=== PATIENT | female | born 1970 | race Caucasian/White ===

== ENCOUNTER 2017-04-30 10:03 | Outpatient (CLI) | payer OTHER | END 2017-04-30 10:04 | disposition home or self-care (01) | LOC: LAB.WCP 10:03 | PROVIDERS: ATTEND Physician Assistant Medical | DX: R25.2 Cramp and spasm (principal) | CPT/HCPCS: 36415; 83519 ==

== ENCOUNTER 2017-09-06 07:37 | Outpatient (CLI) | payer BC ==
[2017-09-06] MEDS ORDERED: GADOBUTROL 10 MMOL/10 ML VIAL ONE (07:52)
[2017-09-06] MEDS ORDERED: GADOBUTROL 10 MMOL/10 ML VIAL IVP ONE (08:33)
--- NOTE | 2017-09-06 17:39 | MRI Report ---
EXAM: MRI BRAIN WITHOUT AND WITH CONTRAST EXAM DATE: 09/06/2017 08:45 AM. CLINICAL HISTORY: Muscle cramps, peripheral neuropathy. History of chronic fibromyalgia. Recent left leg pain. COMPARISON: None. TECHNIQUE: Multiplanar, multisequence T1-weighted and fluid-sensitive MR sequences of the brain were performed. Sequences optimized for routine evaluation. Other: None. IV Contrast: 8.5 mL Gadavist. FINDINGS: Brain Volume: Normal for age. Parenchyma: No acute hemorrhage, mass, or infarct. He matter and white matter signal is unremarkabl e. No abnormal enhancement. Ventricles/Cisterns: No hydrocephalus. No abnormal extra-axial fluid collection or hemorrhage. Orbits: Symmetric and unremarkable. Sella Turcica: The pituitary gland, cavernous sinuses, suprasellar cistern and optic chiasm are unrem arkable. IAC: Symmetric and unremarkable. Vasculature: Normal signal flow void is seen in the major arterial structures at the skull base. The dural sinuses are patent and enhance normally. Sinuses: No acute sinus disease. Bones: No focal pathologic appearing marrow signal changes. There is an oval 7 mm focus of signal abn ormality seen in the superior left occipital bone likely representing an hemangioma or epidermoid. Th is primarily follows fat signal intensity without restricted diffusion. Other: None. IMPRESSION: 1.Normal MRI of the brain without and with contrast. [facility] Referring Provider Line: [phone] SITE ID: [id number]
== END 2017-09-06 07:38 | disposition home or self-care (01) ==
LOC: DI 07:37
PROVIDERS: ATTEND Physician Assistant Medical
DX: R25.2 Cramp and spasm (principal); G62.9 Polyneuropathy, unspecified
CPT/HCPCS: 70553; A9585

== ENCOUNTER 2017-10-17 09:13 | Outpatient (CLI) | payer BC | END 2017-10-17 09:14 | disposition home or self-care (01) | LOC: LAB.R 09:13 | PROVIDERS: ATTEND Physician Assistant Medical | DX: R35.0 Frequency of micturition (principal) | CPT/HCPCS: 87086 ==

== ENCOUNTER 2018-10-21 20:39 | Outpatient (CLI) | payer OTHER ==
--- NOTE | 2018-10-22 14:27 | Ultrasound Report ---
Reason: RIGHT LOWER QUADRANT PAIN Procedure Date: 10/21/2018 Accession Number: [id number] / [id number] Procedure: US - Pelvic w/Transvaginal CPT Code: FULL RESULT: EXAM: PELVIC ULTRASOUND EXAM DATE: 10/21/2018 09:48 PM. CLINICAL HISTORY: Right lower quadrant pain. COMPARISON: None. TECHNIQUE: Realtime transabdominal pelvic scan performed to identify the uterus and adnexa and as an overview of other pelvic structures, followed by transvaginal scan to provide greater detail of the uterus and adnexa, with static image documentation. FINDINGS: Uterus: 9.4 x 5.0 x 6.1 cm, volume 150 cc. Anteverted position. Normal overall size and echotexture. Masses: None. Endometrium: 4 mm. Normal. Cervix: Nabothian cyst, otherwise unremarkable. Right Ovary: 3.1 x 1.8 x 1.9 cm, volume 5.5 cc. Normal echotexture. Left Ovary: 1.9 x 2.2 x 1.5 cm, volume 3.3 cc. Normal echotexture. Free Fluid: None. Other: None. IMPRESSION: Normal study. [facility]
== END 2018-10-21 20:40 | disposition home or self-care (01) ==
LOC: DI 20:39
PROVIDERS: ATTEND Nurse Practitioner Family
DX: R10.31 Right lower quadrant pain (principal); R10.813 Right lower quadrant abdominal tenderness
CPT/HCPCS: 76830; 76856

== ENCOUNTER 2019-03-02 09:59 | Outpatient (CLI) | payer OTHER ==
[2019-03-02 10:26] LABS: BASOPHILS # (AUTO) 0.1 10^3/uL (0.0-0.1); BASOPHILS % (AUTO) 1.1 %; EOSINOPHILS # (AUTO) 0.1 10^3/uL (0.0-0.7); EOSINOPHILS % (AUTO) 1.1 %; HGB - HEMOGLOBIN 11.5 g/dL (12.0-16.0); LYMPHOCYTES # (AUTO) 1.6 10^3/uL (1.5-3.5); LYMPHOCYTES % (AUTO) 32.2 %; MEAN CORPUSCULAR HEMOGLOBIN 24.6 pg (27.0-31.0); MEAN CORPUSCULAR HGB CONC 31.4 g/dL (32.0-36.0); MEAN CORPUSCULAR VOLUME 78.4 fL (81.0-99.0); MEAN PLATELET VOLUME 9.2 fL (7.9-10.8); MONOCYTES # (AUTO) 0.4 10^3/uL (0.0-1.0); MONOCYTES % (AUTO) 7.7 %; NEUTROPHILS # (AUTO) 2.8 10^3/uL (1.5-6.6); NEUTROPHILS % (AUTO) 57.9 %; PLT - PLATELET COUNT 141 10^3/uL (130-450); RED BLOOD COUNT 4.69 10^6/uL (4.20-5.40); RED CELL DISTRIBUTION WIDTH 15.6 % (12.0-15.0); WHITE BLOOD COUNT 4.9 x10^3/uL (4.8-10.8)
[2019-03-02 10:38] LABS: HCG UR QUAL NEGATIVE
[2019-03-02 10:41] LABS: CREATININE 0.7 mg/dL (0.4-1.0)
== END 2019-03-02 10:00 | disposition home or self-care (01) ==
LOC: LAB 09:59
PROVIDERS: ATTEND Obstetrics & Gynecology
DX: Z01.812 Encounter for preprocedural laboratory examination (principal); N94.6 Dysmenorrhea, unspecified; R10.2 Pelvic and perineal pain; N87.9 Dysplasia of cervix uteri, unspecified
CPT/HCPCS: 36415; 80048; 81025; 85025; 86850; 86900; 86901

== ENCOUNTER 2019-03-03 07:51 | Day surgery (SDC) | payer OTHER ==
--- NOTE | 2019-03-03 07:46 | ANESTHESIA ---
Pre-Anesthesia VS, & Labs - Diagnosis dysmenorrhea, pelvic pain - Procedure diagnostic laparoscopy, loop electrocautery procedure (LEEP) Vital Signs: BP 98/72, HR 60, RR 18 100% sat Height 5 ft 3 in Body Mass Index 33.6 - NPO >8 hours - Is Patient ?: No Home Medications and Allergies Home Medications: Ambulatory Orders Calcium Citrate 2 tab PO BID 03/02/19 Cyanocobalamin (Vitamin B-12) [Vitamin B-12] 1,000 mcg PO DAILY 03/02/19 Magnesium Oxide [Magnesium] 400 mg PO QPM 03/02/19 Multivitamin [Daily Multiple Vitamin] 1 each PO DAILY 03/02/19 Naltrexone [Naltrexone Base Monohydrate] 10 mg SL QPM 03/02/19 Trazodone HCl 50 mg PO QPM PRN 03/02/19 Ubidecarenone/Vit E Acetate [Co Q-10 100 mg Softgel] 1 each PO DAILY 03/02/19 diazePAM [Diazepam] 5 mg PO DAILY 03/02/19 Calcium Citrate 2 tab PO BID 03/02/19 Cyanocobalamin (Vitamin B-12) [Vitamin B-12] 1,000 mcg PO DAILY 03/02/19 Magnesium Oxide [Magnesium] 400 mg PO QPM 03/02/19 Multivitamin [Daily Multiple Vitamin] 1 each PO DAILY 03/02/19 Naltrexone [Naltrexone Base Monohydrate] 10 mg SL QPM 03/02/19 Trazodone HCl 50 mg PO QPM PRN 03/02/19 Ubidecarenone/Vit E Acetate [Co Q-10 100 mg Softgel] 1 each PO DAILY 03/02/19 diazePAM [Diazepam] 5 mg PO DAILY 03/02/19 Allergies/Adverse Reactions: Allergies Allergy/AdvReac Type Severity Reaction Status Date / Time amitriptyline Allergy Hallucinati Verified 03/02/19 10:10 ons NSAIDS (Non-Steroidal AdvReac gastric Verified 03/02/19 09:47 Anti-Inflamma bypass Anes History & Medical History - Anesthetic History Anesthesia Complications: reports: Other-see comment (patient's states "cranky") - Medical History Cardiovascular: reports: None Pulmonary: reports: None Gastrointestinal: reports: Other Urinary: reports: None Musculoskeletal: reports: Fibromyalgia, Fatigue, Other Endocrine/Autoimmune: reports: None Blood Disorders: reports: None Skin: reports: None Smoking Status: Never smoker - Surgical History General: Cholecystectomy, Gastric surgery Eyes Ears Nose Throat (EENT): Rhinoplasty, Tonsil/Adenoidectomy Gynecologic: section Orthopedic: Spine surgery Exam General: Alert Dental: WNL Mouth Openin Fingerbreadth Neck Mobility: Normal Mallampati classification: II Thyromental Distance: greater than 6 cm Respiratory: Lungs clear Cardiovascular: Regular rate Plan Anesthesia Type: General Consent for Procedure(s) Verified and Reviewed: Yes Code Status: Attempt Resuscitation ASA classification: 2-Mild systemic disease Is this case an emergency?: No
[2019-03-03] MEDS ORDERED: ceFAZolin 1 GM VIAL ONE (07:56)
[2019-03-03] MEDS ORDERED: LACTATED RINGERS 1,000 ML IV ONE ×2 (08:25→11:47)
[2019-03-03] MEDS ORDERED: BUPIVACAINE 0.25%-EPI 1:200000 PF 30 ML VIAL ONE (08:35)
[2019-03-03] MEDS ORDERED: NEOSTIGMINE 0.5 MG/1 ML 10 ML MDV IVP ONE (10:35)
[2019-03-03] MEDS ORDERED: ROCURONIUM 50 MG/5 ML VIAL IVP ONE (10:35)
[2019-03-03] MEDS ORDERED: diphenhydrAMINE INJ 50 MG/ML VIAL IVP ONE (10:35)
[2019-03-03] MEDS ORDERED: PROPOFOL 200 MG/20 ML VIAL IVP ONE (10:35)
[2019-03-03] MEDS ORDERED: MIDAZOLAM 2 MG/2 ML VIAL IVP ONE (10:35)
[2019-03-03] MEDS ORDERED: fentaNYL 100 MCG/2 ML VIAL IVP ONE (10:35)
[2019-03-03] MEDS ORDERED: LIDOCAINE-MPF 2% 5 ML VIAL IM ONE (10:35)
[2019-03-03] MEDS ORDERED: GLYCOPYRROLATE 1 MG/5 ML VIAL IVP ONE (10:35)
[2019-03-03] MEDS ORDERED: ONDANSETRON 4 MG/2 ML VIAL IVP ONE (10:35)
[2019-03-03] MEDS ORDERED: BUPIVACAINE 0.25%-EPI 1:200000 PF 30 ML VIAL SUBQ ONE ×2 (10:47)
[2019-03-03] MEDS ORDERED: BUPIVACAINE 0.25% PF 30 ML VIAL SUBQ ONE (11:00)
[2019-03-03] MEDS ORDERED: ACETAMINOPHEN 1,000 MG/100 ML 100 ML IV ONE (11:34)
--- NOTE | 2019-03-03 11:35 | OPERATIVE REPORT ---
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 Procedure Performed: DX laproscopy with lysis of adhesions, removal of foreign body, LEEP Post Op Diagnosis: Pelvic adhisions, RUQ adhesions, retained surgical staple, CIN2 - Procedure Note Primary Surgeon: Rob Villa MD Secondary Surgeon: Beatris Ugarte MD Anesthesia Provider: Franky Logan CRNA Anesthesia Technique: General ET tube Pathology: Firign body, Anterior cervical LEEP, Posterior cervical LEEP, Top Hat, ECC IV Fluids (mL): 1,000 Estimated Blood Loss (mL): 10 Urine Output (mL): 50 Findings: RUQ adn LL pelvic adhesions Surgical clip in the culdesac Complications: none - Other Other Information/Narrative: #[id number]
[2019-03-03] MEDS ORDERED: HYDROmorphone 0.5 MG/0.5 ML SYRINGE IVP PRN (11:46)
[2019-03-03] MEDS ORDERED: LORazepam 2 MG/ML VIAL IVP PRN (11:46)
[2019-03-03] MEDS ORDERED: ONDANSETRON 4 MG/2 ML VIAL IVP PRN (11:46)
--- NOTE | 2019-03-03 12:22 | OPERATIVE REPORT ---
DATE OF SERVICE: 03/03/2019 Physician: Rob Villa MD PREOPERATIVE DIAGNOSES 1. Right lower quadrant pain. 2. WINIFRED 2 of the cervix. POSTOPERATIVE DIAGNOSES 1. Left adnexal adhesions. 2. Surgical clip foreign body in the cul-de-sac. 3. Right upper quadrant adhesions. 4. WINIFRED 2. PROCEDURES 1. Diagnostic laparoscopy with lysis of adhesions and removal of foreign intra-abdominal foreign bod y. 2. LEEP procedure. SURGEON: Rob Villa MD LINE ERECTOR APPRENTICE: Beatris Ugarte MD ANESTHESIA: General via an endotracheal tube. ANESTHESIA PROVIDER : Miranda corbett CRNA IV FLUIDS: 1000 mL ESTIMATED BLOOD LOSS: 10 mL URINE OUTPUT: 50 mL FINDINGS: Upon entering the abdominal cavity, there was evidence of adhesions to the left adnexa and pelvic sidewall as well as colon. There were also adhesions of the right upper quadrant. Upon insp ection carefully there was a surgical staple found in the cul-de-sac of Cj. The right side of t he abdomen showed no evidence of adhesions. There was no evidence of any endometriosis in the pelvis . With speculum exam of the cervix, there was evidence of a nonstaining portion of the cervix anteri seun. PROCEDURE: Following adequate endotracheal anesthesia patient was placed in the dorsal lithotomy pos ition in [facility]. At this point, she was prepped and draped in the usual fashion. A timeout was performed, at which time the patient was identified, and concerns addressed. A speculum was plac ed in the vagina. The cervix was visualized, grasped with a single-tooth tenaculum and then a cervic al manipulator was placed into the cervical os. The drill operator's gloves were changed and following loc al anesthesia of 0.25% Marcaine and subumbilical area a #11 blade was used to incise the belly of the umbilicus vertically. A 5 mm trocar and sheath were placed following a second pass. The pelvis was inspected. There was no evidence of any bleeding or injury to the bowel at site of injury. Two add itional ports were placed, both in the left and right lower quadrants following local anesthesia with 0.25% Marcaine. Skin incision with a #11 blade and then 5 mm ports being placed under direct visual ization. The liver was inspected and noted to be normal. There was evidence of adhesions on the rig ht upper quadrant. There was also evidence of adhesions on the left adnexa to the wall as well as jazmine wel. Upon careful inspection of the cul-de-sac of Cj there was a surgical staple, which was ass umed to be left from her previous gastric bypass. The anterior posterior leaves of the broad ligamen t as well as anterior posterior uterus did not show evidence of any endometriosis. The appendix was inspected and noted to be normal. The LigaSure was then utilized in the right upper quadrant and the adhesions were cauterized and transected. Care was taken to stay as close the abdominal wall to dec rease risk of injury to the bowel. The adhesions in the left lower quadrant were then taken down wit h the LigaSure. Once again, care was taken to stay as remote from the bowel as possible to decrease risk of injury. The surgical clip was removed from the cul-de-sac. At this point, there was no evid ence of any bleeding. The trocars were removed under direct visualization and the port sites were in spected and no bleeding was noted, the subumbilical site was then removed. The CO2 was allowed to es cape as much as possible. At this point, attention was turned to the vagina. A pink large Graves pl astic speculum was placed in the vagina, the manipulator was removed from the vagina. At this point, the cervix was visualized, Lugol solution was placed in the cervix to delineate evidence of any lesi ons. There is an area at 12 o'clock, which showed nonstaining. A large loop was then used to transe ct the squamocolumnar junction anteriorly as well as posteriorly, these were sent separately. A top hat was then obtained. The endocervical area was then curetted and sent for pathologic evaluation. At this point, the area was treated with electrocautery and then Monsel's solution, there was no evid ence of any further bleeding, 0.25% Marcaine with epinephrine was injected in the cervix for postoper ative pain control. At this point, the procedure was terminated, the patient tolerated the procedure well and was taken to recovery in stable condition. Sponge and needle counts were correct. TD: 03/03/2019 11:49
[2019-03-03] MEDS ORDERED: oxyCODONE 5 MG TABLET PO ONE (12:58)
[2019-03-03] MEDS ORDERED: oxyCODONE 5 MG TABLET ONE (13:04)
[2019-03-03 13:33] VITALS: BP 37/60
== END 2019-03-03 07:52 | disposition home or self-care (01) ==
LOC: SDS 07:51
PROVIDERS: ATTEND Obstetrics & Gynecology
PROC: 0UBC7ZZ Excision of Cervix, Via Natural or Artificial Opening (ICD-10-PCS; 2019-03-03)
PROC: 0DNW4ZZ Release Peritoneum, Percutaneous Endoscopic Approach (ICD-10-PCS; principal; 2019-03-03 09:00)
PROC: 0UCF4ZZ Extirpation of Matter from Cul-de-sac, Percutaneous Endoscopic Approach (ICD-10-PCS; 2019-03-03 09:00)
DX: N73.6 Female pelvic peritoneal adhesions (postinfective) (principal); N94.6 Dysmenorrhea, unspecified; N87.1 Moderate cervical dysplasia; Z98.84 Bariatric surgery status; Z90.49 Acquired absence of other specified parts of digestive tract; Z98.891 History of uterine scar from previous surgery; Z80.3 Family history of malignant neoplasm of breast
CPT/HCPCS: 57522; 58660; A9270; J0131; J1200; J7120

== ENCOUNTER 2019-03-25 07:12 | Outpatient (CLI) | payer OTHER ==
--- NOTE | 2019-03-25 17:37 | MRI Report ---
Reason: APHASIA,PERIPHERAL NEUROPATHY,MUSCLE CRAMPS,FIBROM Procedure Date: 03/25/2019 Accession Number: [id number] / [id number] Procedure: MRI - Brain W/O CPT Code: FULL RESULT: EXAM: MRI BRAIN WITHOUT CONTRAST EXAM DATE: 03/25/2019 07:55 AM. CLINICAL HISTORY: APHASIA,PERIPHERAL NEUROPATHY,MUSCLE CRAMPS,FIBROM. COMPARISON: BRAIN W/WO 09/06/2017 8:00 AM. TECHNIQUE: Multiplanar, multisequence T1-weighted and fluid-sensitive MR sequences of the brain were performed. Sequences optimized for routine evaluation. Other: None. IV Contrast: None. FINDINGS: The diffusion-weighted images are normal. There is no evidence of acute or subacute cerebral infarction. The T2 axial FLAIR images are normal. Cerebral volume and ventricular size are normal. The T2* sequence is normal. There is no evidence of subacute or chronic hemorrhage. The cerebral vascular flow voids are patent. The corpus callosum is of normal size and configuration. The pituitary and sella are normal. The craniocervical junction is normal. Cerebral volume and ventricular size are normal. There is susceptibility demonstrated abutting the right side of the tentorium cerebelli likely reflecting dural calcification. The bilateral parotid spaces exhibit normal signal intensity. The optic nerves demonstrate symmetric signal intensity and size. The imaged portions of the paranasal sinuses are normally aerated. IMPRESSION: 1. There is no evidence of acute or subacute cerebral infarction. 2. There is no significant white matter disease. 3. There is no evidence of brain mass.
--- NOTE | 2019-03-26 08:25 | MRI Report ---
Reason: APHASIA,PERIPHERAL NEUROPATHY,MUSCLE CRAMPS,FIBROM Procedure Date: 03/25/2019 Accession Number: [id number] / [id number] Procedure: MRI - Cervical Spine W/O CPT Code: FULL RESULT: EXAM: MRI CERVICAL SPINE WITHOUT CONTRAST EXAM DATE: 03/25/2019 08:34 AM. CLINICAL HISTORY: Aphasia, peripheral neuropathy, muscle cramps, fibrom. Stated clinical concern for multiple sclerosis on the exam requisition. COMPARISONS: CERVICAL SPINE W/O 09/18/2016 5:26 PM. TECHNIQUE: Multiplanar, multisequence T1-weighted and fluid-sensitive sequences of the cervical spine without contrast. Other: None. FINDINGS: Neurologic Structures: The visualized posterior fossa structures are unremarkable. No signal abnormality in the visualized spinal cord. Alignment: No change. Minimal C4 on C5 retrolisthesis as before. Bone Marrow: No gross fractures or bone lesions. No marrow edema. Interspace Levels/Facets: No new, acute or progressive degenerative change. The disk space is slightly narrowed at C4-C5. No evidence for focal disk extrusion or significant stenosis of the central canal or neural foramina. Musculature: Normal. No edema or fatty atrophy. Other: The paravertebral and prevertebral soft tissues are normal. IMPRESSION: 1. Stable normal appearance of the cervical spinal cord. 2. Stable minimal degenerative changes without evidence for significant or progressive stenosis in the cervical spine. [facility]
== END 2019-03-25 07:13 | disposition home or self-care (01) ==
LOC: DI 07:12
PROVIDERS: ATTEND Nurse Practitioner
DX: R47.01 Aphasia (principal); G62.9 Polyneuropathy, unspecified; R25.2 Cramp and spasm; M79.7 Fibromyalgia; M50.321 Other cervical disc degeneration at C4-C5 level; M43.12 Spondylolisthesis, cervical region
CPT/HCPCS: 70551; 72141

== ENCOUNTER 2019-03-26 12:17 | Outpatient (CLI) | payer OTHER ==
[2019-03-26 13:31] LABS: THYROID STIMULATING HORMONE 3.47 uIU/mL (0.34-5.60)
[2019-03-26 13:33] LABS: FREE T4 (FREE THYROXINE) 0.87 ng/dL (0.58-1.64)
[2019-03-26 14:25] LABS: RHEUMATOID FACTOR NEGATIVE (Negative)
[2019-03-29 19:42] LABS: ANA SCREEN POSITIVE (NEGATIVE)
== END 2019-03-26 12:18 | disposition home or self-care (01) ==
LOC: LAB 12:17
PROVIDERS: ATTEND Nurse Practitioner
DX: G95.9 Disease of spinal cord, unspecified (principal); G60.9 Hereditary and idiopathic neuropathy, unspecified; R53.83 Other fatigue
CPT/HCPCS: 36415; 84439; 84443; 84481; 85651; 86038; 86140; 86200; 86430

== ENCOUNTER 2019-03-27 08:37 | Outpatient (CLI) | payer OTHER ==
[2019-03-27] MEDS ORDERED: GADOBUTROL 10 MMOL/10 ML VIAL ONE (08:50)
[2019-03-27] MEDS ORDERED: GADOBUTROL 10 MMOL/10 ML VIAL IV ONE (09:52)
--- NOTE | 2019-03-27 10:21 | MRI Report ---
Reason: LEG WEAKNESS,LEFT,MYELOPATHY,PERIPHERAL NEUROPATHY Procedure Date: 03/27/2019 Accession Number: [id number] / [id number] Procedure: MRI - Lumbar Spine W/WO CPT Code: FULL RESULT: EXAM: MRI LUMBAR SPINE WITHOUT AND WITH CONTRAST EXAM DATE: 03/27/2019 09:50 AM. CLINICAL HISTORY: LEG WEAKNESS,LEFT,MYELOPATHY,PERIPHERAL NEUROPATHY. COMPARISONS: MRI LUMBAR SPINE W/O CONT 10/17/2012 7:50 AM. TECHNIQUE: Multiplanar, multisequence T1-weighted and fluid-sensitive sequences of the lumbar spine from T12 to S1 before and after administration of intravenous contrast. Other: None. IV contrast: 9 cc Gadavist. FINDINGS: Neurologic Structures: The conus terminates at T12. The conus medullaris and cauda equina are unremarkable. Alignment: No scoliosis or spondylolisthesis. Bone Marrow: Five [id number] lumbar vertebral bodies are assumed. No gross fractures or bone lesions. No bone marrow replacement or abnormal enhancement. Disk Levels/Facets: T12-L1: Unremarkable. L1-L2: Unremarkable. L2-L3: Unremarkable. L3-L4: Unremarkable. L4-L5: Unremarkable. L5-S1: Posterior 2 mm disk protrusion with high signal fissure. The intervertebral foramina are negative for stenosis. Decreased size of the central posterior disk protrusion as compared to the 3-4 mm posterior disk protrusion L5-S1 MRI 10/17/2012. Mild facet joint arthrosis. Spinal Canal: No enhancing masses within the spinal canal. No epidural abscess. Musculature: Normal. No edema, abnormal enhancement, or fatty atrophy. Other: The visualized retroperitoneum is unremarkable. IMPRESSION: 1. Negative for spinal canal stenosis, foraminal stenosis or disk herniation. 2. Central 2 mm posterior disk protrusion L5-S1 decreased in size as compared to the MRI lumbar spine 10/17/2012. Comment: The following findings are so common in adults without low back pain that while we report their presence, they must be interpreted with caution and in the context of the clinical situation. (Reference Blancak et al, Spine 2001) Prevalence of findings in patients without low back pain: Disk degeneration (any evidence): 92% Disk desiccation/T2 signal loss: 83% Disk height loss: 56% Disk bulge: 64% Disk protrusion: 32% Annular tear/high intensity zone: 38% [facility]
== END 2019-03-27 08:38 | disposition home or self-care (01) ==
LOC: DI 08:37
PROVIDERS: ATTEND Nurse Practitioner
DX: M51.27 Other intervertebral disc displacement, lumbosacral region (principal)
CPT/HCPCS: 72158; A9585

== ENCOUNTER 2019-04-24 08:42 | Outpatient (CLI) | payer OTHER ==
[2019-04-24 09:34] LABS: ALBUMIN 3.3 g/dL (3.2-5.5); BILIRUBIN,DIRECT 0.1 mg/dL (0.1-0.5); BILIRUBIN,TOTAL 0.6 mg/dL (0.2-1.0); TOTAL PROTEIN 6.6 g/dL (6.7-8.2)
== END 2019-04-24 08:43 | disposition home or self-care (01) ==
LOC: LAB 08:42
PROVIDERS: ATTEND Nurse Practitioner
DX: G95.9 Disease of spinal cord, unspecified (principal); M79.7 Fibromyalgia
CPT/HCPCS: 36415; 80076; 82550

== ENCOUNTER 2019-12-29 09:25 | Outpatient (CLI) | payer BC ==
--- NOTE | 2019-12-29 10:53 | Mammography Report ---
Reason: SCREENING MAMMO Procedure Date: 12/29/2019 Accession Number: [id number] / [id number] Procedure: MGS - Screening Mammo Dig Bilat CPT Code: Final Report FULL RESULT: EXAM: Screening Mammo Dig Bilat DATE: 12/29/2019 9:54 AM CLINICAL HISTORY: Routine screening TECHNIQUE: (B) - Bilateral CC and MLO views were obtained. COMPARISON: 08/26/2016 and 07/10/2009 PARENCHYMAL PATTERN: (D) - The breasts demonstrate heterogeneously dense fibroglandular parenchyma bilaterally. FINDINGS: No significant interval change. There are no suspicious masses, calcifications, or areas of distortion. IMPRESSION: Negative examination. BI-RADS category 1. RECOMMENDATION: (ANNUAL) - Recommend routine annual screening mammography. BI-RADS CATEGORY: (1) - Negative. STANDARD QUALIFYING STATEMENTS: 1. This examination was not reviewed with the aid of Computer-Aided Detection (CAD). 2. A negative or benign imaging report should not preclude biopsy if clinically suspicious findings are present. 3. Dense breasts may obscure an underlying neoplasm. 4. This examination was reviewed without the aid of 3D breast imaging (tomosynthesis).
== END 2019-12-29 09:26 | disposition home or self-care (01) ==
LOC: DI.S 09:25
PROVIDERS: ATTEND Nurse Practitioner
DX: Z12.31 Encounter for screening mammogram for malignant neoplasm of breast (principal)
CPT/HCPCS: 77067

== ENCOUNTER 2020-04-27 11:58 | Outpatient (CLI) | payer BC ==
[2020-04-27 15:28] LABS: ALBUMIN 4.1 g/dL (3.2-5.5); ALBUMIN/GLOBULIN RATIO 1.3 (1.0-2.2); BILIRUBIN,TOTAL 0.5 mg/dL (0.2-1.0); CALCIUM 8.8 mg/dL (8.5-10.3); CREATININE 0.9 mg/dL (0.4-1.0); TOTAL PROTEIN 7.3 g/dL (6.7-8.2)
== END 2020-04-27 11:59 | disposition home or self-care (01) ==
LOC: LAB.S 11:58
PROVIDERS: ATTEND Physician Assistant Medical
DX: Z79.899 Other long term (current) drug therapy (principal)
CPT/HCPCS: 36415; 80053

== ENCOUNTER 2020-10-12 06:59 | Outpatient (CLI) | payer BC ==
[2020-10-12 07:39] LABS: % IRON SATURATION 7 % (20-50); ALBUMIN 3.7 g/dL (3.2-5.5); ALBUMIN/GLOBULIN RATIO 1.1 (1.0-2.2); ALKALINE PHOSPHATASE 86 IU/L (42-121); ALT ALANINE AMINOTRANSFERASE 31 IU/L (10-60); AST ASPARTATE AMINOTRANSFERASE 27 IU/L (10-42); BILIRUBIN,TOTAL 0.6 mg/dL (0.2-1.0); BUN - BLOOD UREA NITROGEN 10 mg/dL (6-20); CALCIUM 9.1 mg/dL (8.5-10.3); CARBON DIOXIDE - CO2 26 mmol/L (21-32); CHLORIDE 102 mmol/L (101-111); CHOL/HDL RATIO 3.2 (<4.4); CHOLESTEROL 231 mg/dL; CREATININE 0.8 mg/dL (0.4-1.0); CRP - C-REACTIVE PROTEIN < 1.0 mg/dL (0-1.0); GFR - MDRD 77 (>89); GLUCOSE 117 mg/dL (70-100); HDL CHOLESTEROL 72 mg/dL; IRON 38 ug/dL (28-170); LDL CHOLESTEROL,CALCULATED 141 mg/dL; POTASSIUM 3.8 mmol/L (3.5-5.0); SODIUM 137 mmol/L (135-145); TOTAL IRON BINDING CAPACITY 528 ug/dL (250-450); TOTAL PROTEIN 7.1 g/dL (6.7-8.2); TRANSFERRIN 377 mg/dL (192-382); TRIGLYCERIDES 88 mg/dL; VLDL CHOLESTEROL 18 mg/dL
[2020-10-12 07:49] LABS: THYROID STIMULATING HORMONE 3.34 uIU/mL (0.34-5.60)
[2020-10-12 07:50] LABS: BASOPHILS % (AUTO) 0.6 %; EOSINOPHILS # (AUTO) 0.1 10^3/uL (0.0-0.7); EOSINOPHILS % (AUTO) 1.8 %; HCT - HEMATOCRIT 37.9 % (37.0-47.0); HGB - HEMOGLOBIN 11.5 g/dL (12.0-16.0); LYMPHOCYTES # (AUTO) 1.8 10^3/uL (1.5-3.5); LYMPHOCYTES % (AUTO) 27.6 %; MEAN CORPUSCULAR HEMOGLOBIN 24.3 pg (27.0-31.0); MEAN CORPUSCULAR HGB CONC 30.3 g/dL (32.0-36.0); MEAN PLATELET VOLUME 11.1 fL (7.9-10.8); MONOCYTES # (AUTO) 0.5 10^3/uL (0.0-1.0); MONOCYTES % (AUTO) 7.7 %; NEUTROPHILS # (AUTO) 4.1 10^3/uL (1.5-6.6); PLT - PLATELET COUNT 181 10^3/uL (130-450); RED BLOOD COUNT 4.74 10^6/uL (4.20-5.40); RED CELL DISTRIBUTION WIDTH 14.6 % (12.0-15.0); WHITE BLOOD COUNT 6.5 x10^3/uL (4.8-10.8)
[2020-10-12 07:55] LABS: FERRITIN 4.1 ng/mL (11.0-306.8)
== END 2020-10-12 07:00 | disposition home or self-care (01) ==
LOC: LAB 06:59
PROVIDERS: ATTEND Nurse Practitioner
DX: Z79.899 Other long term (current) drug therapy (principal); R79.89 Other specified abnormal findings of blood chemistry; G95.9 Disease of spinal cord, unspecified; E78.5 Hyperlipidemia, unspecified; D50.9 Iron deficiency anemia, unspecified; F32.9 Major depressive disorder, single episode, unspecified; F41.9 Anxiety disorder, unspecified
CPT/HCPCS: 36415; 80053; 80061; 82728; 83540; 83721; 84443; 84466; 85025; 85651; 86140

== ENCOUNTER 2020-12-04 16:06 | Outpatient (CLI) | payer BC ==
[2020-12-04 16:33] LABS: BASOPHILS # (AUTO) 0.1 10^3/uL (0.0-0.1); BASOPHILS % (AUTO) 0.6 %; EOSINOPHILS # (AUTO) 0.1 10^3/uL (0.0-0.7); EOSINOPHILS % (AUTO) 1.3 %; HGB - HEMOGLOBIN 11.9 g/dL (12.0-16.0); LYMPHOCYTES # (AUTO) 2.3 10^3/uL (1.5-3.5); LYMPHOCYTES % (AUTO) 28.6 %; MEAN CORPUSCULAR HEMOGLOBIN 24.6 pg (27.0-31.0); MEAN CORPUSCULAR HGB CONC 30.7 g/dL (32.0-36.0); MEAN CORPUSCULAR VOLUME 80.1 fL (81.0-99.0); MEAN PLATELET VOLUME 10.1 fL (7.9-10.8); MONOCYTES # (AUTO) 0.6 10^3/uL (0.0-1.0); MONOCYTES % (AUTO) 6.7 %; NEUTROPHILS # (AUTO) 5.1 10^3/uL (1.5-6.6); NEUTROPHILS % (AUTO) 62.6 %; PLT - PLATELET COUNT 175 10^3/uL (130-450); RED BLOOD COUNT 4.83 10^6/uL (4.20-5.40); RED CELL DISTRIBUTION WIDTH 15.3 % (12.0-15.0); WHITE BLOOD COUNT 8.2 x10^3/uL (4.8-10.8)
[2020-12-04 16:42] LABS: CREATININE 0.7 mg/dL (0.4-1.0)
== END 2020-12-04 16:07 | disposition home or self-care (01) ==
LOC: LAB 16:06
PROVIDERS: ATTEND Obstetrics & Gynecology
DX: Z01.812 Encounter for preprocedural laboratory examination (principal); N92.0 Excessive and frequent menstruation with regular cycle; N94.6 Dysmenorrhea, unspecified; Z20.822 Contact with and (suspected) exposure to COVID-19
CPT/HCPCS: 36415; 80048; 85025; 86850; 86900; 86901

== ENCOUNTER 2020-12-06 06:16 | Day surgery (SDC) | payer BC ==
[~2020-12-06 06:16] MED LIST: PHENAZOPYRIDINE 100 MG TABLET PO ONE; ceFAZolin 2 GM/50 ML 2 GM/50 ML BAG IV ONE
[2020-12-06] MEDS ORDERED: CELECOXIB 100 MG CAPSULE PO ONE (06:50)
[2020-12-06] MEDS ORDERED: GABAPENTIN 400 MG CAPSULE ONE (06:50)
[2020-12-06] MEDS ORDERED: PHENAZOPYRIDINE 100 MG TABLET PO ONE (06:51)
[2020-12-06] MEDS ORDERED: ACETAMINOPHEN 1,000 MG/100 ML 100 ML IV ONE (06:51)
[2020-12-06] MEDS ORDERED: BUPIVACAINE 0.5% PF 30 ML VIAL ONE (06:56)
[2020-12-06] MEDS ORDERED: LIDOCAINE 2%-EPI 1:100000 20 ML MDV ONE (06:56)
[2020-12-06] MEDS ORDERED: LACTATED RINGERS 1,000 ML IV ONE (07:04)
[2020-12-06] MEDS ORDERED: VANCOMYCIN 1 GM VIAL ONE (07:12)
[2020-12-06] MEDS ORDERED: MIDAZOLAM 2 MG/2 ML VIAL ONE (07:13)
[2020-12-06] MEDS ORDERED: ONDANSETRON 4 MG/2 ML VIAL ONE (07:14)
[2020-12-06] MEDS ORDERED: PROPOFOL 200 MG/20 ML VIAL IVP ONE (07:14)
[2020-12-06] MEDS ORDERED: LIDOCAINE-MPF 2% 5 ML VIAL ONE (07:14)
[2020-12-06] MEDS ORDERED: DEXAMETHASONE 4 MG/ML VIAL ONE (07:14)
[2020-12-06] MEDS ORDERED: fentaNYL 100 MCG/2 ML VIAL ONE ×3 (07:14→12:10)
[2020-12-06] MEDS ORDERED: ROCURONIUM 50 MG/5 ML VIAL ONE ×3 (07:14→11:00)
[2020-12-06] MEDS ORDERED: BUPIVACAINE 0.5% PF 30 ML VIAL INFIL ONE ×2 (07:25→11:10)
[2020-12-06] MEDS ORDERED: LIDOCAINE 2%-EPI 1:100000 20 ML MDV SUBQ ONE ×2 (07:27)
[2020-12-06] MEDS ORDERED: NALOXONE 0.4 MG/ML VIAL IVP PRN (07:37)
[2020-12-06] MEDS ORDERED: HYDROmorphone 0.5 MG/0.5 ML SYRINGE IVP PRN (07:37)
[2020-12-06] MEDS ORDERED: MORPHINE 2 MG/ML CARPUJECT IVP PRN (07:37)
[2020-12-06] MEDS ORDERED: ePHEDrine 50 MG/ML VIAL IVP PRN (07:37)
[2020-12-06] MEDS ORDERED: fentaNYL 100 MCG/2 ML VIAL IVP PRN (07:37)
[2020-12-06] MEDS ORDERED: METOCLOPRAMIDE 10 MG/2 ML VIAL IVP PRN (07:37)
[2020-12-06] MEDS ORDERED: ONDANSETRON 4 MG/2 ML VIAL IVP PRN ×2 (07:37→11:26)
[2020-12-06] MEDS ORDERED: ATROPINE ABBOJECT 1 MG/10 ML SYRINGE IVP PRN (07:37)
--- NOTE | 2020-12-06 07:37 | ANESTHESIA ---
Pre-Anesthesia VS, & Labs - Diagnosis menorrhagia, - Procedure Total Laparoscopic Hysterectomy Vital Signs: Temp Pulse Resp BP Pulse Ox 36.2 C L 64 18 110/77 99 12/06/20 06:25 12/06/20 06:25 12/06/20 06:25 12/06/20 06:25 12/06/20 06:25 Height: 5 ft 3 in Weight (kg): 97.2 kg Body Mass Index: 37.9 BMI Classification: Obese - NPO >8 hours - Is Patient ?: No - Lab Results Current Lab Results: Laboratory Tests 12/06/20 06:56: POC Whole Bld Glucose 116 H Lab results reviewed: Yes Home Medications and Allergies Home Medications: Ambulatory Orders Baclofen [Lioresal] 20 mg PO QPM 11/30/20 Cholecalciferol [Vitamin D3] 50 mcg PO DAILY 11/30/20 Ferrous Gluconate 324 mg PO BID 11/30/20 Iron Fumarate/Vit C/Vit B12/FA [Hematogen Forte Softgel] 1 each PO DAILY 11/30/20 Calcium Citrate 2 tab PO BID 03/02/19 Cyanocobalamin (Vitamin B-12) [Vitamin B-12] 1,000 mcg PO DAILY 03/02/19 Magnesium Oxide [Magnesium] 400 mg PO QPM 03/02/19 Multivitamin [Daily Multiple Vitamin] 1 each PO DAILY 03/02/19 Ubidecarenone/Vit E Acet [Co Q-10 100 mg Softgel] 1 each PO DAILY 03/02/19 diazePAM [Diazepam] 5 mg PO DAILY 03/02/19 Baclofen [Lioresal] 20 mg PO QPM 11/30/20 Cholecalciferol [Vitamin D3] 50 mcg PO DAILY 11/30/20 Ferrous Gluconate 324 mg PO BID 11/30/20 Iron Fumarate/Vit C/Vit B12/FA [Hematogen Forte Softgel] 1 each PO DAILY 11/30/20 Allergies/Adverse Reactions: Allergies Allergy/AdvReac Type Severity Reaction Status Date / Time amitriptyline Allergy Hallucinati Verified 03/02/19 10:10 ons zonisamide Allergy night Verified 11/30/20 11:21 terrors iron dextran complex AdvReac Headache Verified 11/30/20 11:21 [From Infed] NSAIDS (Non-Steroidal AdvReac gastric Verified 03/02/19 09:47 Anti-Inflamma bypass Anes History & Medical History - Anesthetic History Anesthesia Complications: reports: No previous complications Family history of Anesthesia Complications: Denies Family history of Malignant Hyperthermia: Denies - Medical History Cardiovascular: reports: None Pulmonary: reports: None Gastrointestinal: reports: Other Urinary: reports: None Musculoskeletal: reports: Fibromyalgia, Fatigue, Other Endocrine/Autoimmune: reports: None Blood Disorders: reports: None Skin: reports: None Smoking Status: Never smoker - Surgical History General: reports: Cholecystectomy, Gastric surgery Eyes Ears Nose Throat (EENT): reports: Rhinoplasty, Tonsil/Adenoidectomy Gynecologic: reports: section Orthopedic: reports: Spine surgery Exam General: Alert, Oriented x3, Cooperative, No acute distress Dental: WNL Mouth Openin Fingerbreadth Neck Mobility: Normal Mallampati classification: II Respiratory: Lungs clear, Normal breath sounds, No respiratory distress, No accessory muscle use Cardiovascular: Regular rate Plan Anesthesia Type: General, Transverse Abdominis Plane (TAP) Block Regional Block: Per Surgeon's request for Post Op pain control Consent for Procedure(s) Verified and Reviewed: Yes Code Status: Attempt Resuscitation ASA classification: 2-Mild systemic disease Is this case an emergency?: No
[2020-12-06] MEDS ORDERED: LACTATED RINGERS 1,000 ML IV SCH (08:00)
[2020-12-06 08:10] LABS: HCG,QUALITATIVE BLOOD NEGATIVE
[2020-12-06] MEDS ORDERED: oxyCODONE 5 MG TABLET PO PRN (11:26)
[2020-12-06] MEDS ORDERED: ACETAMINOPHEN 1,000 MG/100 ML 100 ML IV PRN (11:29)
[2020-12-06] MEDS ORDERED: LACTATED RINGERS 400 ML IV ONE (11:33)
--- NOTE | 2020-12-06 11:33 | OPERATIVE REPORT ---
Operative Report - General Procedure Date: 12/06/20 Planned Procedure: TLH BS USO, CYSTO Pre-Op Diagnosis: MENORRHAGIA, DYSMENORRHEA Procedure Performed: TLH BS RO CYSTO - Procedure Note Primary Surgeon: Rob Craig MD Secondary Surgeon: Michelle Virk MD Anesthesia Provider: Eulogio Gutiérrez CRNA Anesthesia Technique: General ET tube Pathology: Uterus with both tubes and right ovary IV Fluids (mL): 1,500 Estimated Blood Loss (mL): 175 Urine Output (mL): 50
--- NOTE | 2020-12-06 12:22 | OPERATIVE REPORT ---
DATE OF SERVICE: 12/06/2020 Physician: Rob Villa MD PREOPERATIVE DIAGNOSES: 1. Menorrhagia. 2. Dysmenorrhea. POSTOPERATIVE DIAGNOSES: 1. Menorrhagia. 2. Dysmenorrhea. PROCEDURE PERFORMED: Total laparoscopic hysterectomy with bilateral salpingectomy and right oophorectomy and cystoscopy. SURGEON: Rob Villa MD. EGG BREAKING MACHINE OPERATOR: Michelle Virk MD. HOSE TUBING BACKER: Eulogio Gutiérrez CRNA. ANESTHESIA: General via endotracheal tube. IV FLUIDS: 1500 mL. URINE OUTPUT: 175 mL. ESTIMATED BLOOD LOSS: 50 mL. FINDINGS: Upon entering the abdominal cavity, there were some small adhesions on the left adnexal area. These were minor in nature. The remainder of the pelvis appeared to be normal. The uterus was globular and mildly enlarged. DESCRIPTION OF PROCEDURE: Following adequate endotracheal anesthesia, [facility] At this point, she was prepped and draped in the usual fashion. Pelvic examination was unrewarding secondary to some abdominal wall thickness. At this point, a timeout was performed, and the concerns were addressed. A speculum was then placed in the vagina. The cervix was visualized. The cervix resided high in the pelvic cavity. It was then grasped with a single-tooth tenaculum and then sounded to roughly 8 to 9 cm. The uterosacrial ligaments were both injected with 5 ml of Mardaine 0.5 % mixed with 2 % lidocaine with Epi. A district supervisor uterine manipulator was placed. Care was taken to make sure the anvil went to the fornices bilaterally. Both cuffs on the district supervisor were insufflated. At this point, the transfer table operator's gloves were changed and a vertical incision was made in the subumbilical region, and a 5 mm trocar and sheath were placed on the second pass. At this point, the abdomen was insufflated with carbon dioxide, and the pelvic and the abdomen were visualized. There was no evidence of any injury at site of insertion. Two additional ports were placed, both in the left and right lower quadrants. These were done following 0.25% Marcaine with epinephrine local as well as lidocaine. At this point, the pelvis was inspected in its entirety. There were some small adhesions on the left adnexal area. These were taken down with the LigaSure. The ureters were identified on both sides. At this point, the left ovary was deemed to look better, so it was decided to leave this one alone. The right infundibulopelvic ligament was doubly cauterized and then transected with the LigaSure. This was then carried across the misoovaica ligament, all the way to the right round ligament. These were cauterized and transected utilizing the LigaSure. The round ligament was then doubly cauterized and transected secondary to the Chapa artery in this area. The anterior leaf of the broad ligament was then opened, and this was carried across the lower portion of the uterine segment. The bladder was dissected free from the cervix. There were some mild adhesions secondary to her previous section. The posterior leaf was also dissected and cauterized and transected with the LigaSure. This was carried all the way down to the uterine vessels on the right hand side. These were visualized. The tortuosity was identified. The uterine vessels were just cauterized and left in place to decrease the risk of any bleeding. Then, Dr. Virk grasped the salpinx on the left hand side. The mesosalpinx was cauterized and transected utilizing the LigaSure. This was carried all the way down to the round ligaments, which were cauterized and transected. The anterior leaf of the broad ligament was opened, and this was cauterized and transected with the LigaSure. This was carried all the way down to the internal os of the cervix, and then the bladder was pushed free from the lower uterine segment and this peritoneum was also cauterized and transected. The posterior leaf was also cauterized and transected with the LigaSure. This was done all the way down to the uterine vessels, which were visualized, cauterized, and transected. Care was taken to stay as close to the uterus as possible. At this point, the bladder was pushed free of the lower uterine segment, the anvil was palpated, and then utilizing the Harmonic scalpel the uterus was amputated from the apex of the vagina. Care was taken to minimize any reduction in the vaginal length. At this point, the uterus was removed from the vagina. An Asepto syringe was placed to maintain a pneumoperitoneum. The cuff was then closed utilizing a V-Loc suture, starting at the right apex of the vagina, traversing the apex of the vagina. At this point, the needle grasper actually transected the V-Loc suture, so a second suture was placed, and the remainder of the apex of the vagina was closed, then was back sewn. At this point, the apex was inspected for bleeding, none was noted. Photographs were taken of the adnexal area. At the apex of the vagina, there was no active bleeding noted. At this point, a cystoscopy was performed. There was evidence of excellent urine flow from both ureteral orifices. This was made easier utilizing Pyridium to color the urine. The abdominal ports were closed utilizing 4-0 Monocryl. These were closed then with Dermabond. The patient tolerated the procedure well and was taken to recovery in stable condition. Sponge and needle counts were correct. TD: 12/06/2020 11:43 MTDD
[2020-12-06] MEDS: LACTATED RINGERS 1,000 ML IV SCH (14:44)
[2020-12-06] MEDS: KETOROLAC 30 MG/ML VIAL IVP PRN ×2 (14:44→22:35)
--- NOTE | 2020-12-06 15:16 | ANESTHESIA POST OP EVALUATION ---
Anesthesia Post Eval - Post Anesthesia Eval Vitals: Last Vital Signs Temp 36.4 C L 12/06/20 14:29 Pulse 52 L 12/06/20 14:29 Resp 16 12/06/20 14:29 BP 101/59 L 12/06/20 14:29 Pulse Ox 99 12/06/20 14:29 CV Function Including HR & BP: positive: Stable Pain Control: positive: Satisfactory Nausea & Vomiting: positive: Negative Mental Status: positive: Patient Participates Respiratory Status: Airway Patent Hydration Status: Satisfactory Anesthesia Complications: positive: None
[2020-12-06] MEDS: oxyCODONE 5 MG TABLET PO PRN ×2 (16:20→20:10)
[2020-12-06] MEDS ORDERED: CELECOXIB 100 MG CAPSULE PO SCH (21:00)
[2020-12-07] MEDS: oxyCODONE 5 MG TABLET PO PRN ×2 (01:37→08:27)
[2020-12-07] MEDS: LACTATED RINGERS 1,000 ML IV SCH (02:44)
[2020-12-07] MEDS: KETOROLAC 30 MG/ML VIAL IVP PRN (06:15)
--- NOTE | 2020-12-07 08:55 | PROVIDER PROGRESS NOTE ---
Subjective - General Procedure Date: 12/06/20 Post Op Days: 1 Procedure Performed: TLH with BS and RO, CYSTO - Review of Systems Wound/Incisions: positive: Healing well General: positive: No symptoms (Post op pain 01/20 not passing flatus yet) Objective - Patient Data Reviewed Vital Signs: Yes Vital Signs: Vital Signs x48h Temp Pulse Resp BP Pulse Ox 12/07/20 07:34 36.4 C L 61 17 100/58 L 98 12/07/20 06:00 36.8 C 73 16 108/51 L 96 12/07/20 01:32 115/64 Weight: Weight 12/05/20 12/06/20 12/07/20 23:59 23:59 23:59 Weight (kg) 97.2 kg Intake & Output: Intake and Output Totals x24h 12/05/20 12/06/20 12/07/20 23:59 23:59 23:59 Intake Total 1300 1649.996 Output Total 1125 625 Balance 175 1024.996 - Current Medications Current Medications: Current Medications Generic Name Dose Route Start Last Admin Trade Name Freq PRN Reason Stop Dose Admin Docusate Sodium 250 mg 12/07/20 09:00 12/07/20 08:28 Docusate Sodium 250 Mg Capsule PO 250 mg DAILY ADRIAN Administration Acetaminophen 100 mls @ 400 mls/hr 12/06/20 11:29 12/07/20 00:44 Ofirmev IV Infused Q6HR PRN Infusion PAIN Lactated Ringer's 1,000 mls @ 83.333 mls/hr 12/06/20 15:00 12/07/20 02:44 Lr IV 83.333 mls/hr .Q12H ADRIAN Administration Ketorolac Tromethamine 30 mg 12/06/20 14:26 12/07/20 06:15 Ketorolac 30 Mg/Ml Vial IVP 12/11/20 14:25 30 mg Q6HR PRN Administration PAIN Oxycodone HCl 10 mg 12/06/20 14:27 12/07/20 08:27 Oxycodone 5 Mg Tablet PO 10 mg Q4HR PRN Administration PAIN - Physical Exam Wound/Incisions: positive: Dressing dry and intact, No drainage General Appearance: positive: No acute distress, Alert Respiratory: positive: Chest non-tender, No respiratory distress, Breath sounds nml Cardiovascular: positive: Regular rate & rhythm, No murmur, No gallop Abdomen: positive: No organomegaly, Nml bowel sounds, No distention, Tenderness (mild post op) Back: negative: CVA tenderness (R), CVA tenderness (L) Extremities: negative: Calf tenderness, Matt's sign/cords Neurologic/Psychiatric: positive: Oriented x3 Impression/Plan - Problem List Problem List: OPD # ! Slow progress. remove aldridge Ambulate. Discharge medications Oxycodone 5 mg # 15 NO Motrin secondary to gastric by pass Colace 100 MG
[2020-12-07] MEDS ORDERED: DOCUSATE SODIUM 250 MG CAPSULE PO SCH (09:00)
[2020-12-07 09:17] LABS: BASOPHILS % (AUTO) 0.5 %; EOSINOPHILS # (AUTO) 0.2 10^3/uL (0.0-0.7); EOSINOPHILS % (AUTO) 1.9 %; HGB - HEMOGLOBIN 9.7 g/dL (12.0-16.0); LYMPHOCYTES # (AUTO) 2.1 10^3/uL (1.5-3.5); LYMPHOCYTES % (AUTO) 25.1 %; MEAN CORPUSCULAR HEMOGLOBIN 24.7 pg (27.0-31.0); MEAN CORPUSCULAR HGB CONC 30.9 g/dL (32.0-36.0); MEAN CORPUSCULAR VOLUME 79.9 fL (81.0-99.0); MEAN PLATELET VOLUME 10.7 fL (7.9-10.8); MONOCYTES # (AUTO) 0.6 10^3/uL (0.0-1.0); MONOCYTES % (AUTO) 7.1 %; NEUTROPHILS # (AUTO) 5.4 10^3/uL (1.5-6.6); NEUTROPHILS % (AUTO) 64.9 %; PLT - PLATELET COUNT 140 10^3/uL (130-450); RED BLOOD COUNT 3.93 10^6/uL (4.20-5.40); RED CELL DISTRIBUTION WIDTH 15.1 % (12.0-15.0); WHITE BLOOD COUNT 8.3 x10^3/uL (4.8-10.8)
[2020-12-07 11:35] VITALS: BP 99/60
== END 2020-12-07 15:10 | disposition home or self-care (01) ==
LOC: SDS 06:16 → MS2 12:22 → SDS 12-07 15:10
PROVIDERS: ATTEND Obstetrics & Gynecology
PROC: 0UT04ZZ Resection of Right Ovary, Percutaneous Endoscopic Approach (ICD-10-PCS; 2020-12-06)
PROC: 0UT74ZZ Resection of Bilateral Fallopian Tubes, Percutaneous Endoscopic Approach (ICD-10-PCS; 2020-12-06)
PROC: 0UT94ZZ Resection of Uterus, Percutaneous Endoscopic Approach (ICD-10-PCS; principal; 2020-12-06 07:30)
DX: N92.0 Excessive and frequent menstruation with regular cycle (principal); N94.6 Dysmenorrhea, unspecified; R10.2 Pelvic and perineal pain; E66.9 Obesity, unspecified; Z68.37 Body mass index [BMI] 37.0-37.9, adult
CPT/HCPCS: 36415; 58571; 84703; 85025; A9270; J0131; J0690; J7120; 81025

== ENCOUNTER 2021-01-03 09:02 | Outpatient (CLI) | payer BC ==
[2021-01-03 09:22] LABS: BASOPHILS # (AUTO) 0.1 10^3/uL (0.0-0.1); BASOPHILS % (AUTO) 0.8 %; EOSINOPHILS # (AUTO) 0.2 10^3/uL (0.0-0.7); EOSINOPHILS % (AUTO) 3.3 %; HGB - HEMOGLOBIN 11.9 g/dL (12.0-16.0); LYMPHOCYTES # (AUTO) 1.7 10^3/uL (1.5-3.5); LYMPHOCYTES % (AUTO) 27.9 %; MEAN CORPUSCULAR HEMOGLOBIN 24.5 pg (27.0-31.0); MEAN CORPUSCULAR HGB CONC 30.5 g/dL (32.0-36.0); MEAN CORPUSCULAR VOLUME 80.2 fL (81.0-99.0); MEAN PLATELET VOLUME 10.6 fL (7.9-10.8); MONOCYTES # (AUTO) 0.5 10^3/uL (0.0-1.0); MONOCYTES % (AUTO) 8.1 %; NEUTROPHILS # (AUTO) 3.6 10^3/uL (1.5-6.6); NEUTROPHILS % (AUTO) 59.6 %; PLT - PLATELET COUNT 195 10^3/uL (130-450); RED BLOOD COUNT 4.86 10^6/uL (4.20-5.40); RED CELL DISTRIBUTION WIDTH 15.4 % (12.0-15.0); WHITE BLOOD COUNT 6.1 x10^3/uL (4.8-10.8)
[2021-01-03 09:44] LABS: % IRON SATURATION 14 % (20-50); IRON 72 ug/dL (28-170); TOTAL IRON BINDING CAPACITY 517 ug/dL (250-450); TRANSFERRIN 369 mg/dL (192-382)
== END 2021-01-03 09:03 | disposition home or self-care (01) ==
LOC: LAB 09:02
PROVIDERS: ATTEND Nurse Practitioner
DX: D50.9 Iron deficiency anemia, unspecified (principal); N94.6 Dysmenorrhea, unspecified; R10.2 Pelvic and perineal pain; E78.5 Hyperlipidemia, unspecified
CPT/HCPCS: 36415; 82728; 83540; 84466; 85025

== ENCOUNTER 2021-02-19 06:57 | Outpatient (CLI) | payer BC ==
[2021-02-19 07:38] LABS: % IRON SATURATION 11 % (20-50); IRON 60 ug/dL (28-170); TOTAL IRON BINDING CAPACITY 564 ug/dL (250-450); TRANSFERRIN 403 mg/dL (192-382)
[2021-02-19 08:01] LABS: BASOPHILS % (AUTO) 0.7 %; EOSINOPHILS # (AUTO) 0.1 10^3/uL (0.0-0.7); EOSINOPHILS % (AUTO) 2.5 %; HCT - HEMATOCRIT 39.4 % (37.0-47.0); HGB - HEMOGLOBIN 11.9 g/dL (12.0-16.0); LYMPHOCYTES # (AUTO) 1.7 10^3/uL (1.5-3.5); LYMPHOCYTES % (AUTO) 30.2 %; MEAN CORPUSCULAR HEMOGLOBIN 24.7 pg (27.0-31.0); MEAN CORPUSCULAR HGB CONC 30.2 g/dL (32.0-36.0); MEAN CORPUSCULAR VOLUME 81.7 fL (81.0-99.0); MONOCYTES # (AUTO) 0.4 10^3/uL (0.0-1.0); MONOCYTES % (AUTO) 6.2 %; NEUTROPHILS # (AUTO) 3.4 10^3/uL (1.5-6.6); PLT - PLATELET COUNT 179 10^3/uL (130-450); RED BLOOD COUNT 4.82 10^6/uL (4.20-5.40); RED CELL DISTRIBUTION WIDTH 14.3 % (12.0-15.0); WHITE BLOOD COUNT 5.6 x10^3/uL (4.8-10.8)
== END 2021-02-19 06:58 | disposition home or self-care (01) ==
LOC: LAB 06:57
PROVIDERS: ATTEND Family Medicine
DX: D50.9 Iron deficiency anemia, unspecified (principal)
CPT/HCPCS: 36415; 82728; 83540; 84466; 85025

== ENCOUNTER 2021-02-21 10:50 | Outpatient (CLI) | payer BC ==
[2021-02-23 19:12] LABS: ANA SCREEN POSITIVE (NEGATIVE)
== END 2021-02-21 10:51 | disposition home or self-care (01) ==
LOC: LAB 10:50
PROVIDERS: ATTEND Physician Assistant
DX: M79.10 Myalgia, unspecified site (principal)
CPT/HCPCS: 36415; 82550; 85651; 86038

== ENCOUNTER 2021-11-02 08:00 | Outpatient (CLI) | payer BC ==
--- NOTE | 2021-11-02 20:16 | XRAY Report ---
PROCEDURE: Lumbar Spine 2 View INDICATIONS: LOW BACK PAIN, ACUTE TECHNIQUE: 3 views of the lumbar spine were acquired. COMPARISON: None. FINDINGS: Bones: 5 [id number] vertebrae are present. There is normal bony alignment. Mild degenerative e ndplate changes are seen at L4-5 and L5-S1 levels. No vertebral body compression fractures. No suspi cious bony lesions. Soft tissues: Fecal stasis in the colon is seen. No suspicious soft tissue calcifications. Surgical clips are seen in epigastric region and bilateral upper quadrant abdomen. IMPRESSION: No acute compression fracture or spondylolisthesis. Mild degenerative disc disease at L4 -5 and L5-S1 levels. Reviewed by: Brennen Cole MD on 11/02/2021 8:14 PM PST Approved by: Brennen Cole MD on 11/02/2021 8:14 PM PST Station ID: [id number]
== END 2021-11-02 23:59 | disposition home or self-care (01) ==
LOC: DI.S 08:00
PROVIDERS: ATTEND Physician Assistant
DX: M51.36 Other intervertebral disc degeneration, lumbar region (principal); M51.37 Other intervertebral disc degeneration, lumbosacral region

== ENCOUNTER 2021-12-13 08:20 | Outpatient (CLI) | payer BC ==
[2021-12-13 08:50] LABS: BASOPHILS % (AUTO) 0.4 %; EOSINOPHILS # (AUTO) 0.1 10^3/uL (0.0-0.7); EOSINOPHILS % (AUTO) 1.7 %; HCT - HEMATOCRIT 43.9 % (37.0-47.0); HGB - HEMOGLOBIN 14.1 g/dL (12.0-16.0); LYMPHOCYTES # (AUTO) 1.8 10^3/uL (1.5-3.5); LYMPHOCYTES % (AUTO) 25.3 %; MEAN CORPUSCULAR HEMOGLOBIN 27.4 pg (27.0-31.0); MEAN CORPUSCULAR HGB CONC 32.1 g/dL (32.0-36.0); MEAN CORPUSCULAR VOLUME 85.4 fL (81.0-99.0); MEAN PLATELET VOLUME 10.1 fL (7.9-10.8); MONOCYTES # (AUTO) 0.5 10^3/uL (0.0-1.0); MONOCYTES % (AUTO) 6.5 %; NEUTROPHILS # (AUTO) 4.5 10^3/uL (1.5-6.6); NEUTROPHILS % (AUTO) 65.5 %; PLT - PLATELET COUNT 170 10^3/uL (130-450); RED BLOOD COUNT 5.14 10^6/uL (4.20-5.40); RED CELL DISTRIBUTION WIDTH 13.2 % (12.0-15.0); WHITE BLOOD COUNT 6.9 x10^3/uL (4.8-10.8)
[2021-12-13 09:15] LABS: ALBUMIN 4.1 g/dL (3.2-5.5); ALBUMIN/GLOBULIN RATIO 1.3 (1.0-2.2); BILIRUBIN,TOTAL 0.9 mg/dL (0.2-1.0); CALCIUM 9.2 mg/dL (8.5-10.3); CREATININE 0.9 mg/dL (0.4-1.0); TOTAL PROTEIN 7.3 g/dL (6.7-8.2)
== END 2021-12-13 08:21 | disposition home or self-care (01) ==
LOC: LAB 08:20
PROVIDERS: ATTEND Physician Assistant
DX: D50.9 Iron deficiency anemia, unspecified (principal)
CPT/HCPCS: 36415; 80053; 82728; 83540; 84466; 85025

== ENCOUNTER 2021-12-14 15:26 | Outpatient (CLI) | payer BC ==
--- NOTE | 2021-12-14 16:20 | DEXA Report ---
PROCEDURE: Dexa Spine and/or Hip INDICATIONS: DDD TECHNIQUE: Dual energy x-ray absorptiometry (DXA) was performed on a [employer] System. Regions measur ed are the AP Spine, femoral neck, and if needed forearm. COMPARISON: None. FINDINGS: Lumbar Spine: Bone Mineral Density 0.960 g/cm/cm,T score -1.8. Left Hip: Bone Mineral Density 0.846 g/cm/cm,T score is 1.3. Left Femoral Neck: Bone Mineral Density 0.873 g/cm/cm, T score -1.2. (T score greater or equal to -1.0: NORMAL) (T score from -1.1 to -2.4: OSTEOPENIA) (T score less than or equal to -2.5 to: OSTEOPOROSIS) Impression: Based on upright show criteria, the patient is osteopenic. Patients with diagnosis of osteoporosis or osteopenia should have regular bone mineral density assess ment. For those eligible for Medicare, routine testing is allowed once every 2 years. Testing frequ ency can be increased for patients who have rapidly progressing disease or for those who are receivin g medical therapy to restore bone mass. Reviewed by: Ann Marie Leon MD on 12/14/2021 4:19 PM PST Approved by: Ann Marie Leon MD on 12/14/2021 4:19 PM PST Station ID: [id number]
== END 2021-12-14 15:27 | disposition home or self-care (01) ==
LOC: DI 15:26
PROVIDERS: ATTEND Physician Assistant
DX: M85.89 Other specified disorders of bone density and structure, multiple sites (principal)

== ENCOUNTER 2022-04-14 14:53 | Outpatient (CLI) | payer BC ==
--- NOTE | 2022-04-17 08:30 | Mammography Report ---
BILATERAL DIGITAL SCREENING MAMMOGRAM 3D/2D: 04/14/2022 CLINICAL: Routine screening. Family history of breast cancer. Comparison is made to exams dated: 12/29/2019 mammogram and 08/26/2016 mammogram - [facility]. The tissue of both breasts is heterogeneously dense. This may lower the sensitivity of m ammography. No significant masses, calcifications, or other findings are seen in either breast. There has been no significant interval change. IMPRESSION: NEGATIVE There is no mammographic evidence of malignancy. A 1 year screening mammogram is recommended. This exam was interpreted at Station ID: [id number]. NOTE: For mammograms, a report in lay terms will be sent to the patient. Approximately 15% of breast malignancies will not be visualized mammographically. In the management of a palpable breast mass, a negative mammogram must not discourage biopsy of a clinically suspicious lesion. Electronically Signed By: Lida gonzalez/tran:04/16/2022 11:13:01 ACR BI-RADS Category 1: Negative 3341F PARENCHYMAL PATTERN: (D) - The breast(s) demonstrate(s) heterogeneously dense fibroglandular kristen benjamin. BI-RADS CATEGORY: (1) - 1 RECOMMENDATION: (ANNUAL) - Recommend routine annual screening mammography. [id number] 1 year screening LATERALITY: (B)
== END 2022-04-14 14:54 | disposition home or self-care (01) ==
LOC: DI.S 14:53
DX: Z12.31 Encounter for screening mammogram for malignant neoplasm of breast (principal); Z80.3 Family history of malignant neoplasm of breast

== ENCOUNTER 2023-03-12 07:12 | Outpatient (CLI) | payer BC ==
[2023-03-12 07:34] LABS: BASOPHILS # (AUTO) 0.1 10^3/uL (0.0-0.1); BASOPHILS % (AUTO) 0.7 %; EOSINOPHILS # (AUTO) 0.2 10^3/uL (0.0-0.7); EOSINOPHILS % (AUTO) 2.2 %; HCT - HEMATOCRIT 43.5 % (37.0-47.0); HGB - HEMOGLOBIN 13.8 g/dL (12.0-16.0); LYMPHOCYTES % (AUTO) 27.2 %; MEAN CORPUSCULAR HEMOGLOBIN 27.1 pg (27.0-31.0); MEAN CORPUSCULAR HGB CONC 31.7 g/dL (32.0-36.0); MEAN CORPUSCULAR VOLUME 85.3 fL (81.0-99.0); MEAN PLATELET VOLUME 10.4 fL (7.9-10.8); MONOCYTES # (AUTO) 0.4 10^3/uL (0.0-1.0); MONOCYTES % (AUTO) 6.1 %; NEUTROPHILS # (AUTO) 4.5 10^3/uL (1.5-6.6); PLT - PLATELET COUNT 243 10^3/uL (130-450); RED CELL DISTRIBUTION WIDTH 13.2 % (12.0-15.0); WHITE BLOOD COUNT 7.2 x10^3/uL (4.8-10.8)
[2023-03-12 07:59] LABS: % IRON SATURATION 24 % (20-50); ALBUMIN 3.7 g/dL (3.2-5.5); ALBUMIN/GLOBULIN RATIO 1.1 (1.0-2.2); ALKALINE PHOSPHATASE 114 IU/L (42-121); ALT ALANINE AMINOTRANSFERASE 56 IU/L (10-60); AST ASPARTATE AMINOTRANSFERASE 34 IU/L (10-42); BILIRUBIN,TOTAL 0.6 mg/dL (0.2-1.0); BUN - BLOOD UREA NITROGEN 16 mg/dL (6-20); CALCIUM 9.1 mg/dL (8.5-10.3); CARBON DIOXIDE - CO2 26 mmol/L (21-32); CHLORIDE 106 mmol/L (101-111); CHOL/HDL RATIO 2.5 (<4.4); CHOLESTEROL 225 mg/dL; CREATININE 0.8 mg/dL (0.4-1.0); GFR - MDRD 76 (>89); GLUCOSE 122 mg/dL (70-100); HDL CHOLESTEROL 89 mg/dL; IRON 115 ug/dL (28-170); LDL CHOLESTEROL,CALCULATED 122 mg/dL; LDL/HDL RATIO 1.4 (<4.4); POTASSIUM 4.3 mmol/L (3.5-5.0); SODIUM 139 mmol/L (135-145); TOTAL IRON BINDING CAPACITY 482 ug/dL (250-450); TOTAL PROTEIN 7.1 g/dL (6.7-8.2); TRANSFERRIN 344 mg/dL (192-382); TRIGLYCERIDES 71 mg/dL; VLDL CHOLESTEROL 14 mg/dL
[2023-03-12 08:12] LABS: THYROID STIMULATING HORMONE 2.49 uIU/mL (0.34-5.60)
[2023-03-12 08:14] LABS: FREE T3 3.32 pg/mL (2.5-3.9); FREE T4 (FREE THYROXINE) 0.92 ng/dL (0.58-1.64)
[2023-03-12 08:19] LABS: FERRITIN 20.5 ng/mL (11.0-306.8)
[2023-03-13 20:08] LABS: THYROGLOBULIN ANTIBODY <1.0 IU/mL (0.0-0.9); THYROID PEROXIDASE (TPO) AB 13 IU/mL (0-34)
== END 2023-03-12 07:13 | disposition home or self-care (01) ==
LOC: LAB 07:12
PROVIDERS: ATTEND Nurse Practitioner
DX: I10 Essential (primary) hypertension (principal); R79.89 Other specified abnormal findings of blood chemistry; E55.9 Vitamin D deficiency, unspecified; R25.2 Cramp and spasm; G62.9 Polyneuropathy, unspecified; G47.9 Sleep disorder, unspecified; G47.00 Insomnia, unspecified; M79.7 Fibromyalgia
CPT/HCPCS: 36415; 80053; 80061; 82607; 82728; 83540; 83721; 84439; 84443; 84466; 84481; 85025; 86376; 86800

== ENCOUNTER 2023-03-20 07:14 | Outpatient (CLI) | payer BC ==
[2023-03-20 09:33] LABS: ESTIMATED AVERAGE GLUCOSE 120 mg/dL (70-100); HEMOGLOBIN A1c% 5.8 % (4.27-6.07)
== END 2023-03-20 07:15 | disposition home or self-care (01) ==
LOC: LAB 07:14
PROVIDERS: ATTEND Registered Nurse
DX: R73.01 Impaired fasting glucose (principal)
CPT/HCPCS: 36415; 83036; 83525

== ENCOUNTER 2023-03-20 08:00 | Outpatient (CLI) | payer BC | END 2023-03-20 08:01 | disposition home or self-care (01) | LOC: LAB 08:00 | PROVIDERS: ATTEND Nurse Practitioner | DX: R73.01 Impaired fasting glucose (principal); G47.9 Sleep disorder, unspecified; G47.00 Insomnia, unspecified; M79.7 Fibromyalgia | CPT/HCPCS: 36415; 81599; 83036; 83525 ==

== ENCOUNTER 2023-08-25 13:03 | Outpatient (CLI) | payer BC ==
--- NOTE | 2023-08-26 13:30 | Mammography Report ---
BILATERAL DIGITAL SCREENING MAMMOGRAM 3D/2D: 08/25/2023 CLINICAL: Routine screening. Comparison is made to exams dated: 04/14/2022 mammogram, 12/29/2019 mammogram, and 08/26/2016 mammogram - [facility]. Both breasts are heterogeneously dense, which may obscure small masses (category c / 51-75% glandular tissue). No significant masses, calcifications, or other findings are seen in either breast. There has been no significant interval change. IMPRESSION: NEGATIVE There is no mammographic evidence of malignancy. A 1 year screening mammogram is recommended. Based on the Tyrer Cuzick model (a risk assessment model) the patients lifetime risk is 19.9% and he r 10 year risk is 5.5%. According to the ACR, ACS, and NCCN guidelines, an annual breast MRI exam jimmy ng with mammogram is recommended if the patients lifetime risk is 20% or greater. This exam was interpreted at Station ID: [id number]. NOTE: For mammograms, a report in lay terms will be sent to the patient. Approximately 15% of breast malignancies will not be visualized mammographically. In the management of a palpable breast mass, a negative mammogram must not discourage biopsy of a clinically suspicious lesion. Electronically Signed By: Michael mendez/tran:08/25/2023 16:14:49 letter sent: No_Letter ACR BI-RADS Category 1: Negative 3341F PARENCHYMAL PATTERN: (D) - The breast(s) demonstrate(s) heterogeneously dense fibroglandular kristen benjamin. BI-RADS CATEGORY: (1) - 1 Mammogram [id number] 1 year screening LATERALITY: (B)
== END 2023-08-25 13:04 | disposition home or self-care (01) ==
LOC: DI 13:03
PROVIDERS: ATTEND Nurse Practitioner Acute Care
DX: Z12.31 Encounter for screening mammogram for malignant neoplasm of breast (principal); R92.333 Mammographic heterogeneous density, bilateral breasts

== ENCOUNTER 2023-11-12 07:00 | Outpatient (CLI) | payer BC ==
--- NOTE | 2023-11-12 16:01 | XRAY Report ---
PROCEDURE: Abdomen Acute INDICATIONS: CONSTIPATION TECHNIQUE: 2 views of the abdomen were acquired. COMPARISON: None. FINDINGS: Surgical changes and devices: None. Chest: Lungs are clear. Heart size is normal. No pleural effusions. No pneumoperitoneum. Bowel: No pneumoperitoneum. The bowel gas pattern is normal. Stool load within normal limits. Soft tissues: No masses; visualized solid organ contours appear normal in size. No suspicious abdom inal calcifications. Bones: No suspicious bony abnormalities. IMPRESSION: No acute abdominal or chest pathology. Reviewed by: Lay Greer MD on 11/12/2023 4:00 PM PST Approved by: Lay Greer MD on 11/12/2023 4:00 PM PST Station ID: [id number]
== END 2023-11-12 23:59 | disposition home or self-care (01) ==
LOC: DI.S 07:00
PROVIDERS: ATTEND Registered Nurse
DX: K59.00 Constipation, unspecified (principal); R63.0 Anorexia; R10.9 Unspecified abdominal pain

== ENCOUNTER 2023-11-13 08:36 | Emergency (ER) | payer BC ==
[2023-11-13] MEDS ORDERED: LIDOCAINE VISCOUS 2% 15 ML ORAL SYRINGE MM STA (09:25)
[2023-11-13] MEDS ORDERED: MAG HYDROX/AL HYDROX/SIMETH 30 ML UDC PO STA (09:25)
[2023-11-13 09:51] LABS: BASOPHILS % (AUTO) 0.5 %; EOSINOPHILS % (AUTO) 0.7 %; HCT - HEMATOCRIT 41.4 % (37.0-47.0); HGB - HEMOGLOBIN 12.9 g/dL (12.0-16.0); LYMPHOCYTES # (AUTO) 1.4 10^3/uL (1.5-3.5); LYMPHOCYTES % (AUTO) 23.2 %; MEAN CORPUSCULAR HEMOGLOBIN 26.2 pg (27.0-31.0); MEAN CORPUSCULAR HGB CONC 31.2 g/dL (32.0-36.0); MEAN CORPUSCULAR VOLUME 84.1 fL (81.0-99.0); MEAN PLATELET VOLUME 10.5 fL (7.9-10.8); MONOCYTES # (AUTO) 0.4 10^3/uL (0.0-1.0); MONOCYTES % (AUTO) 6.8 %; NEUTROPHILS % (AUTO) 68.5 %; PLT - PLATELET COUNT 199 10^3/uL (130-450); RED BLOOD COUNT 4.92 10^6/uL (4.20-5.40); RED CELL DISTRIBUTION WIDTH 13.1 % (12.0-15.0); WHITE BLOOD COUNT 5.9 x10^3/uL (4.8-10.8)
[2023-11-13 09:54] LABS: ALBUMIN/GLOBULIN RATIO 1.5 (1.0-2.2); BILIRUBIN,TOTAL 0.6 mg/dL (0.2-1.0); CALCIUM 9.6 mg/dL (8.5-10.3); CREATININE 0.9 mg/dL (0.6-1.3); POTASSIUM 3.9 mmol/L (3.5-4.5); TOTAL PROTEIN 6.7 g/dL (6.4-8.9)
[2023-11-13 09:55] LABS: BILIRUBIN,URINE NEGATIVE (NEGATIVE); GLUCOSE, URINE (UA) NEGATIVE (NEGATIVE); KETONES,URINE (UA) NEGATIVE (NEGATIVE); LEUKOCYTE ESTERASE, URINE NEGATIVE (NEGATIVE); NITRITE,URINE NEGATIVE (NEGATIVE); OCCULT BLOOD,URINE TRACE-INTA (NEGATIVE); PH,URINE 7.5 PH (5.0-7.5); PROTEIN,URINE NEGATIVE (NEGATIVE); UROBILINOGEN,URINE 0.2 (NORMAL) E.U./dL (NORMAL)
[2023-11-13 09:57] LABS: CLARITY,URINE CLEAR (CLEAR)
--- NOTE | 2023-11-13 10:31 | ED Physician Documentation ---
PD HPI ABD PAIN - Stated complaint Stated Complaint: ABD PX,NAUSEA,BELL - Chief complaint Chief Complaint: Abd Pain - History obtained from History obtained from: Patient - History of Present Illness Timing - onset: How many months ago (2) Timing - duration: Months (2) Timing - details: Gradual onset, Still present Quality: Sharp, Pain Location: Epigastric, RLQ Improved by: Laying still Worsened by: Eating, Position, Palpation Associated symptoms: Nausea, Constipation (releived). No: Vomiting, Diarrhea Similar symptoms before: Has not had sx before Recently seen: Clinic - Additional information Additional information: Meron Bolaños is a 53-year-old female who has had gastric bypass surgery done 15 years ago at [facility]. She has now developed symptoms of abdominal pain and bloating beginning about 2 months ago and this has worsened over the last several days. She has gone in to see someone at the urgent care clinic and had a plain film done of her abdomen. It showed a significant amount of gas throughout the colon. She was treated for constipation and this made no difference to her symptoms. She is on a biologic for treatment of migraine headache (Aimovig) and the chief side effect of this is constipation. Review of Systems Constitutional: denies: Fever, Chills, Myalgias Eyes: denies: Decreased vision Ears: denies: Ear pain Nose: denies: Rhinorrhea / runny nose, Congestion Throat: denies: Sore throat Cardiac: denies: Chest pain / pressure, Palpitations Respiratory: denies: Dyspnea, Cough GI: reports: Abdominal Pain, Abdominal Swelling, Nausea, Constipation (resovled). denies: Vomiting, Diarrhea : denies: Dysuria, Frequency Skin: denies: Rash Musculoskeletal: denies: Neck pain, Back pain, Extremity pain Neurologic: denies: Generalized weakness, Focal weakness, Numbness PD PAST MEDICAL HISTORY - Past Medical History Past Medical History: Yes Cardiovascular: None Respiratory: None Endocrine/Autoimmune: None GI: Other : None HEENT: Chronic vision loss Psych: None Musculoskeletal: Fibromyalgia, Fatigue, Other Derm: None - Past Surgical History Past Surgical History: Yes General: Cholecystectomy, Gastric surgery Ortho: Spine surgery /CLE[employer]ER [employer] POL[employer]ER: section, Hysterectomy HEENT: Rhinoplasty, Tonsil/Adenoidectomy - Present Medications Home Medications: Ambulatory Orders Medication Instructions Recorded Confirmed Calcium Citrate 2 tab PO BID 03/02/19 11/13/23 Cyanocobalamin (Vitamin B-12) 1,000 mcg PO DAILY 03/02/19 11/13/23 [Vitamin B-12] Magnesium Oxide [Magnesium] 400 mg PO QPM 03/02/19 11/13/23 Multivitamin [Daily Multiple 1 each PO DAILY 03/02/19 11/13/23 Vitamin] Baclofen [Lioresal] 20 mg PO QPM 11/30/20 11/13/23 Cholecalciferol [Vitamin D3] 50 mcg PO DAILY 11/30/20 11/13/23 Ferrous Gluconate 324 mg PO BID 11/30/20 11/13/23 Iron Fumarate/Vit C/Vit B12/FA 1 each PO DAILY 11/30/20 11/13/23 [Hematogen Forte Softgel] Erenumab-Aooe [Aimovig 140 mg SUBQ .WEEKLY 11/13/23 11/13/23 Autoinjector] Metoclopramide [Reglan] 10 mg PO TID PRN 11/13/23 11/13/23 - Allergies Allergies/Adverse Reactions: Allergies Allergy/AdvReac Type Severity Reaction Status Date / Time amitriptyline Allergy Hallucinati Verified 11/13/23 09:31 ons zonisamide Allergy night Verified 11/13/23 09:31 terrors iron dextran complex AdvReac Headache Verified 11/13/23 09:31 [From Infed] NSAIDS (Non-Steroidal AdvReac gastric Verified 11/13/23 09:31 Anti-Inflamma bypass - Social History Does the pt smoke?: No Smoking Status: Never smoker Does the pt drink ETOH?: No Does the pt have substance abuse?: No - Immunizations Immunizations are current?: Yes PD ED PE NORMAL - Vitals Vital signs reviewed: Yes (hypesrtensive ) - General General: Alert and oriented X 3, No acute distress, Well developed/nourished - HEENT HEENT: Atraumatic, PERRL, EOMI, Ears normal, Moist mucous membranes - Neck Neck: Supple, no meningeal sign, No bony TTP - Cardiac Cardiac: RRR, No murmur - Respiratory Respiratory: No respiratory distress, Clear bilaterally - Abdomen Abdomen: Normal bowel sounds, Soft, Non distended, No organomegaly, Other (mild epigastric tenderness to palpation no garding ) - Back Back: No CVA TTP, No spinal TTP - Derm Derm: Normal color, Warm and dry, No rash - Extremities Extremities: No deformity, No edema - Neuro Neuro: Alert and oriented X 3, director television news 2-12 intact, No motor deficit, No sensory deficit, Normal speech Eye Opening: Spontaneous Motor: Obeys Commands Verbal: Oriented GCS Score: 15 - Psych Psych: Normal mood, Normal affect Results - Vitals Vitals: Vital Signs - 24 hr 11/13/23 11/13/23 11/13/23 08:53 10:59 12:00 Temperature 36.0 C L Heart Rate 62 58 L 64 Respiratory 16 14 15 Rate Blood Pressure 135/75 H 115/72 111/69 O2 Saturation 100 100 99 Oxygen O2 Source Room air - Labs Labs: Laboratory Tests 11/13/23 11/13/23 11/13/23 09:33 09:36 09:45 WBC 5.9 RBC 4.92 Hgb 12.9 Hct 41.4 MCV 84.1 MCH 26.2 L MCHC 31.2 L RDW 13.1 Plt Count 199 MPV 10.5 Neut # (Auto) 4.0 Lymph # (Auto) 1.4 L Bibb # (Auto) 0.4 Eos # (Auto) 0.0 Baso # (Auto) 0.0 Absolute Nucleated RBC 0.00 Nucleated RBC % 0.0 Sodium 139 Potassium 3.9 Chloride 104 Carbon Dioxide 28 Anion Gap 7.0 BUN 9 Creatinine 0.9 Estimated GFR (MDRD) 66 L Glucose 104 Calcium 9.6 Total Bilirubin 0.6 AST 23 ALT 18 Alkaline Phosphatase 145 H Total Protein 6.7 Albumin 4.0 Globulin 2.7 Albumin/Globulin Ratio 1.5 Lipase 12 Urine Color YELLOW Urine Clarity CLEAR Urine pH 7.5 Ur Specific [place] 1.010 Urine Protein NEGATIVE Urine Glucose (UA) NEGATIVE Urine Ketones NEGATIVE Urine Occult Blood TRACE-INTA Urine Nitrite NEGATIVE Urine Bilirubin NEGATIVE Urine Urobilinogen 0.2 (NORMAL) Ur Leukocyte Esterase NEGATIVE Ur Microscopic Review NOT INDICATED Urine Culture Comments NOT INDICATED - Rads (name of study) CT ab/pel with Relevant Findings:: Prelim report reviewed (Impression: 1. No acute process. Normal appendix.), EMP independent interpretation of test, See rad report PD Medical Decision Making - ED course Complexity details: reviewed old records, reviewed results, re-evaluated patient, considered differential, d/w patient Reviewed Lab Results: We reviewed a complete blood count showing a normal white blood cell count normal hemoglobin hematocrit and platelets. Chemistry showed normal electrolytes normal kidney function normal liver function and elevation of the alkaline phosphatase by 20 points to 145. This has not been elevated in the patient previously urinalysis is unremarkable. These blood test and urinalysis do not contribute to a specific diagnosis. ED course: No relief with viscous lido and mylanta. 53-year-old female with prior gastric bypass appears to have a full stomach on CT scan. She has had her procedure done 15 years ago and she has not had problems with it until about 2 months ago. She is currently on a biologic for control of migraine which has helped tremendously. I was concerned this may be a side effect of her medication and did not find this on the list of side effects. It does list diet constipation as the main side effect and potentially complicating side effect. This does not appear to be clinically present or present on imaging. This patient has not been in to see surgery and follow-up and she has a new problem with abdominal pain and a review by a center of a excellence that does gastric bypass is indicated. I have shared this with the patient and she will attempt to get back in to see her providers at the [facility]. I have indicated the patient that she should not delay evaluation. Today I do not find a life- threatening process. Departure - Departure Disposition: 01 Home, Self Care Clinical Impression: Abdominal pain Qualifiers: Abdominal location: epigastric Qualified Code(s): R10.13 - Epigastric pain Instructions: ED Abdominal Pain Female Non-Specific Abdominal Pain Follow-Up: Dorina Andino ARNP [Primary Care Provider] - Comments: Meron, today we did not find a specific reason for your abdominal pain. The fact that you have had a gastric bypass done previously and her stomach is full sugg est that the pain may be coming from the stomach. My recommendation is to use some Pepcid AC on a regular basis beginning today. In addition whenever there is a problem with abdominal pain in a patient who has had a gastric bypass a review through a center of excellence is indicated. There are problems that can develop with gastric bypass that can be life-threatening and physicians with experience in the follow-up from gastric bypass are required for review when there is a problem without obvious explanation. Today I suspect your full stomach is to blame. Forms: PCP List Discharge Date/Time: 11/13/23 12:49
[2023-11-13] MEDS ORDERED: iohexoL-300 100 ML VIAL ONE (10:42)
--- NOTE | 2023-11-13 11:45 | CT Report ---
PROCEDURE: Abdomen/Pelvis W INDICATIONS: epigastric and general abdominal pain CONTRAST: Omni 300 100ml TECHNIQUE: After the administration of intravenous contrast, a CT scan of the abdomen and pelvis was performed. Images were recorded and evaluated at appropriate window settings. Reformats: coronal and sagittal. F or radiation dose reduction, the following was used: automated exposure control, adjustment of mA and /or kV according to patient size. COMPARISON: 09/16/2014 FINDINGS: Image quality: Diagnostic. Lower chest: Unremarkable. Liver: No solid mass. Gallbladder and biliary tree: Surgically absent Spleen: No splenomegaly. Pancreas: No pancreatic ductal dilation. Adrenals: No adrenal nodule. Kidneys and ureters: No hydronephrosis. No renal cystic lesion which requires follow up. No solid mas s. Stomach, bowel and peritoneum: No bowel distension. No pathologic free fluid. Normal appendix. Lymph nodes: No central or retroperitoneal adenopathy. Vessels: No infrarenal aortic aneurysm. PELVIS Reproductive organs: Unremarkable. Bladder: No abnormal wall thickening, accounting for underdistention. Pelvic lymph nodes: No pelvic adenopathy by size criteria. Bones: No aggressive osseous abnormality. Other: No significant ventral or inguinal hernia. IMPRESSION: 1. No acute process. 2. Normal appendix. Reviewed by: Bev Edwards MD on 11/13/2023 11:43 AM [facility] Approved by: Bev Edwards MD on 11/13/2023 11:43 AM [facility] Station ID: [id number]
[2023-11-13 12:14] VITALS: BP 111/69; O2SAT 99
[2023-11-13] MEDS ORDERED: iohexoL-300 100 ML VIAL IVP ONE (15:19)
== END 2023-11-13 12:49 | disposition home or self-care (01) ==
LOC: ED 08:36
DX: R10.13 Epigastric pain (principal); Z98.84 Bariatric surgery status; Z79.899 Other long term (current) drug therapy
CPT/HCPCS: 36415; 74177; 80053; 81003; 83690; 85025; 99283; A9270; Q9967; 81001; 87086

== ENCOUNTER 2024-03-15 06:40 | Outpatient (CLI) | payer BC ==
[2024-03-15 07:29] LABS: THYROID STIMULATING HORMONE 4.03 uIU/mL (0.34-5.60)
[2024-03-15 07:32] LABS: BASOPHILS % (AUTO) 0.5 %; EOSINOPHILS # (AUTO) 0.1 10^3/uL (0.0-0.7); EOSINOPHILS % (AUTO) 1.7 %; HCT - HEMATOCRIT 41.1 % (37.0-47.0); HGB - HEMOGLOBIN 13.4 g/dL (12.0-16.0); LYMPHOCYTES # (AUTO) 1.7 10^3/uL (1.5-3.5); LYMPHOCYTES % (AUTO) 25.5 %; MEAN CORPUSCULAR HEMOGLOBIN 27.1 pg (27.0-31.0); MEAN CORPUSCULAR HGB CONC 32.6 g/dL (32.0-36.0); MEAN CORPUSCULAR VOLUME 83.2 fL (81.0-99.0); MEAN PLATELET VOLUME 10.6 fL (7.9-10.8); MONOCYTES # (AUTO) 0.5 10^3/uL (0.0-1.0); MONOCYTES % (AUTO) 7.2 %; NEUTROPHILS # (AUTO) 4.3 10^3/uL (1.5-6.6); NEUTROPHILS % (AUTO) 64.9 %; PLT - PLATELET COUNT 223 10^3/uL (130-450); RED BLOOD COUNT 4.94 10^6/uL (4.20-5.40); RED CELL DISTRIBUTION WIDTH 13.7 % (12.0-15.0); WHITE BLOOD COUNT 6.6 x10^3/uL (4.8-10.8)
[2024-03-15 07:44] LABS: ALBUMIN 4.2 g/dL (3.2-5.5); ALBUMIN/GLOBULIN RATIO 1.5 (1.0-2.2); ALKALINE PHOSPHATASE 141 IU/L (42-121); ALT ALANINE AMINOTRANSFERASE 19 IU/L (10-60); AMYLASE 52 U/L (28-100); AST ASPARTATE AMINOTRANSFERASE 24 IU/L (10-42); BILIRUBIN,TOTAL 0.6 mg/dL (0.2-1.0); BUN - BLOOD UREA NITROGEN 12 mg/dL (6-20); CALCIUM 9.9 mg/dL (8.5-10.3); CARBON DIOXIDE - CO2 26 mmol/L (21-32); CHLORIDE 103 mmol/L (101-111); CHOL/HDL RATIO 2.8 (<4.4); CHOLESTEROL 199 mg/dL; CREATININE 0.8 mg/dL (0.6-1.3); GFR - MDRD 76 (>89); GLUCOSE 109 mg/dL (74-104); HDL CHOLESTEROL 70 mg/dL; LDL CHOLESTEROL,CALCULATED 115 mg/dL; LDL/HDL RATIO 1.6 (<4.4); POTASSIUM 3.8 mmol/L (3.5-4.5); SODIUM 137 mmol/L (135-145); TRIGLYCERIDES 69 mg/dL (48-352); VLDL CHOLESTEROL 14 mg/dL
[2024-03-15 07:54] LABS: LIPASE < 10 U/L (11-82)
== END 2024-03-15 06:41 | disposition home or self-care (01) ==
LOC: LAB 06:40
PROVIDERS: ATTEND Nurse Practitioner Family
DX: R10.9 Unspecified abdominal pain (principal); R63.0 Anorexia; K59.00 Constipation, unspecified; Z98.84 Bariatric surgery status
CPT/HCPCS: 36415; 80053; 80061; 82150; 82607; 82746; 83690; 83721; 84443; 85025

== ENCOUNTER 2024-03-25 11:37 | Outpatient (CLI) | payer BC ==
[2024-03-25 12:00] LABS: % IRON SATURATION 15 % (20-50); IRON 73 ug/dL (50-212); TOTAL IRON BINDING CAPACITY 479 ug/dL (250-450); TRANSFERRIN 342 mg/dL (203-362)
== END 2024-03-25 11:38 | disposition home or self-care (01) ==
LOC: LAB 11:37
PROVIDERS: ATTEND Nurse Practitioner Family
DX: D50.9 Iron deficiency anemia, unspecified (principal)
CPT/HCPCS: 36415; 83540; 84466

== ENCOUNTER 2024-03-26 17:25 | Outpatient (CLI) | payer BC | END 2024-03-26 17:26 | disposition home or self-care (01) | LOC: LAB 17:25 | PROVIDERS: ATTEND Nurse Practitioner Family | DX: R74.8 Abnormal levels of other serum enzymes (principal) | CPT/HCPCS: 36415; 84075; 84080 ==

== ENCOUNTER 2024-04-06 17:27 | Outpatient (CLI) | payer BC ==
[2024-04-06 18:04] LABS: BASOPHILS % (AUTO) 0.5 %; EOSINOPHILS # (AUTO) 0.2 10^3/uL (0.0-0.7); EOSINOPHILS % (AUTO) 1.9 %; HCT - HEMATOCRIT 41.7 % (37.0-47.0); LYMPHOCYTES # (AUTO) 2.7 10^3/uL (1.5-3.5); LYMPHOCYTES % (AUTO) 32.2 %; MEAN CORPUSCULAR HEMOGLOBIN 26.5 pg (27.0-31.0); MEAN CORPUSCULAR HGB CONC 31.2 g/dL (32.0-36.0); MEAN CORPUSCULAR VOLUME 85.1 fL (81.0-99.0); MEAN PLATELET VOLUME 10.2 fL (7.9-10.8); MONOCYTES # (AUTO) 0.5 10^3/uL (0.0-1.0); MONOCYTES % (AUTO) 5.6 %; NEUTROPHILS % (AUTO) 59.6 %; PLT - PLATELET COUNT 229 10^3/uL (130-450); RED CELL DISTRIBUTION WIDTH 13.7 % (12.0-15.0); WHITE BLOOD COUNT 8.4 x10^3/uL (4.8-10.8)
[2024-04-06 18:11] LABS: INR 1.1 (0.8-1.2); PT - PROTHROMBIN TIME 11.8 secs (9.9-12.6)
[2024-04-06 18:23] LABS: ALBUMIN 4.3 g/dL (3.2-5.5); ALBUMIN/GLOBULIN RATIO 1.4 (1.0-2.2); BILIRUBIN,TOTAL 0.4 mg/dL (0.2-1.0); CALCIUM 9.8 mg/dL (8.5-10.3); CREATININE 0.8 mg/dL (0.6-1.3); POTASSIUM 3.7 mmol/L (3.5-4.5); TOTAL PROTEIN 7.4 g/dL (6.4-8.9)
[2024-04-06 18:32] LABS: FERRITIN 15.6 ng/mL (11.0-306.8)
== END 2024-04-06 17:28 | disposition home or self-care (01) ==
LOC: LAB 17:27
PROVIDERS: ATTEND Internal Medicine
DX: R74.8 Abnormal levels of other serum enzymes (principal)
CPT/HCPCS: 36415; 80053; 82103; 82390; 82728; 83540; 84466; 85025; 85610; 86015; 86317; 86381; 86704; 86708; 86803; 87340